=== PATIENT | female | born 2000 | race African-American/Black ===

== ENCOUNTER 2023-08-01 13:03 | Emergency (ER) | payer OTHER ==
[~2023-08-01] VITALS: Ht 160 cm; Wt 72.7 kg
[2023-08-01 13:04] VITALS: TEMP 99.5
[2023-08-01] MEDS ORDERED: AMOX250C4 PO (13:41)
[2023-08-01] MEDS ORDERED: AMOXICILLIN TRIHYDRATE 250 MG CAPSULE PO ONE ×2 (13:45→14:00)
[2023-08-01 14:01] VITALS: BP 116/74; PULSE 78; RESP 16
== END 2023-08-01 14:05 | disposition home or self-care (01) ==
LOC: EMS 13:07
DX: H66.91 Otitis media, unspecified, right ear (principal); Z98.890 Other specified postprocedural states
CPT/HCPCS: 99283

== ENCOUNTER 2024-12-05 08:20 | Emergency (ER) | payer OTHER ==
[~2024-12-05] VITALS: Ht 154.9 cm; Wt 68.2 kg
[~2024-12-05 08:20] MED LIST: AMOX250C4 PO
[2024-12-05 08:24] VITALS: TEMP 97.9
[2024-12-05 08:57] LABS: BASOPHILS % (AUTO) 1.2 % (0.0-2.0); EOSINOPHILS % (AUTO) 1.7 % (1.0-6.0); HEMATOCRIT 41.5 % (36-46); HEMOGLOBIN 13.7 g/dL (12.0-16.0); LYMPHOCYTES # (AUTO) 1.5 K/uL (1.0-4.8); LYMPHOCYTES % (AUTO) 41.5 % (22.0-44.0); MEAN CORPUSCULAR HEMOGLOBIN 29.8 pg (26.0-34.0); MEAN CORPUSCULAR HGB CONC 32.9 G/dL (31.0-37.0); MEAN CORPUSCULAR VOLUME 90 fL (80-100); MONOCYTES # (AUTO) 0.4 K/uL (0.1-1.0); MONOCYTES % (AUTO) 10.3 % (2.0-9.0); NEUTROPHILS # (AUTO) 1.6 K/uL (1.8-7.7); NEUTROPHILS % (AUTO) 45.3 % (40.0-70.0); PLATELET COUNT (AUTO) 339 K/uL (150-450); RED BLOOD CELL COUNT(AUTO) 4.59 MIL/uL (4.00-5.20); RED CELL DISTRIBUTION WIDTH 13.7 % (11.5-14.5); WHITE BLOOD COUNT (AUTO) 3.6 K/uL (4.5-11.0)
[2024-12-05 09:30] VITALS: BP 119/79; PULSE 74; RESP 15; O2SAT 99
== END 2024-12-05 09:37 | disposition home or self-care (01) ==
LOC: EMS 08:24
DX: N93.8 Other specified abnormal uterine and vaginal bleeding (principal); R10.30 Lower abdominal pain, unspecified
CPT/HCPCS: 84702; 85025; 86901; 99283

== ENCOUNTER 2025-01-09 09:19 | Emergency (ER) | payer OTHER ==
[~2025-01-09] VITALS: Ht 154.9 cm; Wt 68.2 kg
[2025-01-09 09:21] VITALS: TEMP 98.8
[2025-01-09 10:00] VITALS: BP 120/76; PULSE 79; RESP 15; O2SAT 100
[2025-01-09] MEDS: IBUPROFEN 600 MG TABLET PO ONE (10:07)
[2025-01-09] MEDS: LIDOCAINE 5% TRANSDERMAL PATCH TD ONE (10:07)
[2025-01-09] MEDS: METHOCARBAMOL 500 MG TABLET PO ONE (10:07)
[2025-01-09] MEDS ORDERED: IBUP-1492 PO (10:47)
[2025-01-09] MEDS ORDERED: LIDO700A15 TP (10:47)
[2025-01-09] MEDS ORDERED: METH-659 PO (10:47)
== END 2025-01-09 11:03 | disposition home or self-care (01) ==
LOC: EMS 09:19
DX: S29.012A Strain of muscle and tendon of back wall of thorax, initial encounter (principal); X58.XXXA Exposure to other specified factors, initial encounter; Y93.89 Activity, other specified; Y92.89 Other specified places as the place of occurrence of the external cause; Y99.8 Other external cause status
CPT/HCPCS: 99284; Z7502; Z7610

== ENCOUNTER 2025-07-17 22:22 | Emergency (ER) | payer OTHER ==
[~2025-07-17] VITALS: Ht 154.9 cm; Wt 70.5 kg
[2025-07-17 22:36] VITALS: TEMP 98.4
[2025-07-17 22:57] LABS: PLATELET COUNT (AUTO) 324 K/uL (150-450); RED BLOOD CELL COUNT(AUTO) 4.64 MIL/uL (4.00-5.20); RED CELL DISTRIBUTION WIDTH 14.2 % (11.5-14.5); WHITE BLOOD COUNT (AUTO) 7.4 K/uL (4.5-11.0)
[2025-07-17 23:10] LABS: CALCIUM, TOTAL 8.8 mg/dL (8.8-10.5); CREATININE 0.67 mg/dL (0.60-1.30); GLOMERULAR FILTR. RATE CALC > 60 mL/min (>60); GLUCOSE,RANDOM 126 mg/dL (70-110); SODIUM SERUM 139 mmol/L (136-145); UREA NITROGEN, BLOOD 12 mg/dL (7-18)
[2025-07-17 23:16] LABS: ASPARTATE AMINOTRANSFERASE 15.0 U/L (15-37); TOTAL PROTEIN, SERUM 7.3 g/dL (6.4-8.2)
[2025-07-17 23:21] LABS: TROPONIN I-HIGH SENSITIVITY Less Than 4 ng/L (<51)
[2025-07-18 01:09] VITALS: BP 114/84; PULSE 97; RESP 18; O2SAT 100
== END 2025-07-18 01:19 | disposition home or self-care (01) ==
LOC: EMS 22:23
DX: O26.891 Other specified pregnancy related conditions, first trimester (principal); R07.89 Other chest pain; Z3A.01 Less than 8 weeks gestation of pregnancy; Z98.890 Other specified postprocedural states
CPT/HCPCS: 76801; 80048; 80076; 84484; 84702; 85025; 93005; 99284

== ENCOUNTER 2025-07-20 08:23 | Emergency (ER) | payer OTHER ==
[~2025-07-20] VITALS: Ht 154.9 cm; Wt 79.5 kg
[2025-07-20 08:26] VITALS: TEMP 98.4
[2025-07-20] MEDS ORDERED: PREN-18 PO (08:27)
[2025-07-20 08:48] LABS: PLATELET COUNT (AUTO) 341 K/uL (150-450); RED BLOOD CELL COUNT(AUTO) 4.60 MIL/uL (4.00-5.20); RED CELL DISTRIBUTION WIDTH 14.0 % (11.5-14.5); WHITE BLOOD COUNT (AUTO) 5.8 K/uL (4.5-11.0)
[2025-07-20 09:58] LABS: APPEARANCE,URINE CLEAR (CLEAR); GLUCOSE, URINE (UA) NEGATIVE (NEGATIVE); LEUKOCYTE ESTERASE ,URINE NEGATIVE (NEGATIVE); NITRATE,URINE NEGATIVE (NEGATIVE); OCCULT BLOOD,URINE SMALL (NEGATIVE); SPECIFIC GRAVITIY, URINE 1.033 (1.003-1.030)
[2025-07-20 11:33] VITALS: BP 126/75; PULSE 100; RESP 18; O2SAT 98
== END 2025-07-20 13:00 | disposition home or self-care (01) ==
LOC: EMS 08:23
DX: O20.0 Threatened abortion (principal); Z98.890 Other specified postprocedural states; Z3A.01 Less than 8 weeks gestation of pregnancy; Z79.899 Other long term (current) drug therapy
CPT/HCPCS: 76801; 81001; 84702; 85025; 86901; 99284